=== PATIENT | male | born 1980 | race Caucasian/White ===

== ENCOUNTER 2024-05-09 14:37 | Emergency (ER) | payer OTHER ==
[2024-05-09 16:33] VITALS: BP 113/73; PULSE 66; RESP 20; TEMP 98.1; BMI 23.2
[2024-05-09] MEDS ORDERED: ACETAMINOPHEN 500 MG TABLET (FP) ONE (16:56)
[2024-05-09] MEDS ORDERED: KETOROLAC TROMETHAMINE 30 MG/1 ML VIAL ONE (16:56)
[2024-05-09] MEDS ORDERED: DEXAMETHASONE SOD PHOSPHATE 10 MG/1 ML VIAL ONE (16:56)
[2024-05-09] MEDS ORDERED: LIDOCAINE 4% PATCH TP ONE (16:56)
[2024-05-09] MEDS: ACETAMINOPHEN 500 MG TABLET (FP) PO ONE (17:14)
[2024-05-09] MEDS: KETOROLAC TROMETHAMINE 30 MG/1 ML VIAL IM ONE (17:14)
[2024-05-09] MEDS: LIDOCAINE 4% PATCH TP ONE (17:14)
[2024-05-09] MEDS: DEXAMETHASONE SOD PHOSPHATE 10 MG/1 ML VIAL IM ONE (17:14)
[2024-05-09] MEDS ORDERED: oxyCODONE HCL 5 MG TABLET ONE (17:52)
[2024-05-09] MEDS: oxyCODONE HCL 5 MG TABLET PO ONE (17:58)
[2024-05-09] MEDS ORDERED: diazePAM 5 MG TABLET ONE (20:05)
[2024-05-09 20:15] LABS: BASO % 0.7 % (0-2.0); EOS % 0.2 % (0-4.5); HEMATOCRIT 43.6 % (35.4-49); HEMOGLOBIN 14.7 GM/dL (11.7-16.9); LYMPH % 19.5 % (8-40); MCH 31.8 pg (25.7-33.7); MCHC 33.7 g/dl (32.0-35.9); MEAN CELL VOLUME 94.3 fl (80-96); MEAN PLT VOLUME 7.7 fl (7.5-11.1); MONO % 1.8 % (3.8-10.2); NEUT % 77.8 % (42.8-82.8); PLATELET COUNT 251 10^3/uL (134-434); RBC 4.62 M/mm3 (4.00-5.60); RDW 13.3 % (11.9-15.9); WHITE BLOOD COUNT 4.4 K/mm3 (4.0-10.0)
[2024-05-09] MEDS: diazePAM 5 MG TABLET PO ONE (20:15)
[2024-05-09 20:41] LABS: POTASSIUM 4.6 mmol/L (3.5-5.1)
[2024-05-09 20:43] LABS: ALBUMIN 4.1 g/dl (3.4-5.0); BLOOD UREA NITROGEN 14.5 mg/dL (7-18)
[2024-05-09 20:46] LABS: CREATININE 1.1 mg/dL (0.55-1.3)
[2024-05-09 20:48] LABS: BILIRUBIN,TOTAL 2.1 mg/dL (0.2-1); TOT PROT 8.1 g/dl (6.4-8.2)
[2024-05-09] MEDS ORDERED: LIDOCAINE PATCH REMOVAL MC SCH (22:00)
== END 2024-05-09 21:55 | disposition home or self-care (01) ==
LOC: JERFT 14:37
PROC: 3E023GC Introduction of Other Therapeutic Substance into Muscle, Percutaneous Approach (ICD-10-PCS; principal; 2024-05-09)
PROC: 3E0133Z Introduction of Anti-inflammatory into Subcutaneous Tissue, Percutaneous Approach (ICD-10-PCS; 2024-05-09)
DX: M54.50 Low back pain, unspecified (principal)
CPT/HCPCS: 36415; 72100-TC-FY; 72131-TC; 80053; 85025; 93005; 93010; 99285-25; J1100